=== PATIENT | female | born 2000 | race Caucasian/White ===

== ENCOUNTER 2021-09-05 20:27 | Day surgery (SDC) | payer OTHER ==
[2021-09-05] MEDS ORDERED: hydrALAZINE 20 MG/ML VIAL SLOW IVP PRN (21:56)
[2021-09-05 22:15] LABS: Bilirubin Neg (Negative); Blood, Urine 25 (Negative); Clarity Cloudy (Clear); Glucose, Urine (Dipstick) Normal (Negative); Ketone, Urine 50 mg/dL (Negative); Leukocyte 500 (Negative); Nitrite Negative (Negative); Protein, Urine (Dipstick) 30 mg/dl (Neg-Trace); Specific Gravity, Urine 1.015 (1.002-1.036)
[2021-09-05 22:27] LABS: Bacteria/HPF 3+ HPF (None Seen); WBC/HPF Greater Than 50 HPF (0-3)
[2021-09-05] MEDS ORDERED: Lactated Ringer's 1,000 ML IV SCH (23:00)
[2021-09-05 23:52] LABS: Bilirubin Neg (Negative); Blood, Urine 25 (Negative); Clarity Cloudy (Clear); Glucose, Urine (Dipstick) Normal (Negative); Ketone, Urine 50 mg/dL (Negative); Leukocyte 500 (Negative); Nitrite Negative (Negative); Protein, Urine (Dipstick) 30 mg/dl (Neg-Trace); Urobilinogen Normal mg/dL (Less than 2)
[2021-09-06 00:04] VITALS: BMI 28.1
[2021-09-06] MEDS ORDERED: Cephalexin 500 MG CAP PO SCH (00:15)
[2021-09-06 00:18] LABS: WBC/HPF Greater Than 50 HPF (0-3)
[2021-09-06 00:19] LABS: Bacteria/HPF 3+ HPF (None Seen); Renal Epithelial 0-3 HPF (None Seen); Squamous Epithelial 0-3 HPF (0-3)
== END 2021-09-06 01:46 | disposition home or self-care (01) ==
LOC: CSHLD/OP 20:27
PROVIDERS: ATTEND Obstetrics & Gynecology
DX: O23.43 Unspecified infection of urinary tract in pregnancy, third trimester (principal); N39.0 Urinary tract infection, site not specified; Z3A.34 34 weeks gestation of pregnancy; Z88.5 Allergy status to narcotic agent
CPT/HCPCS: 81001; 87086; 87480; 87510; 87660; 96360; 96361; 99284

== ENCOUNTER 2021-09-17 13:07 | Emergency (ER) | payer OTHER ==
[2021-09-17 14:17] LABS: #Basophils 0.1 10x3/uL (0.0-0.2); #Eosinphils 0.1 10x3/uL (0.0-0.5); #Monocytes 0.4 10x3/uL (0.0-1.1); #Neutrophils 5.3 10x3/uL (1.5-8.4); %Basophils 0.9 % (0.0-2.0); %Eosinophils 1.9 % (0.0-6.0); %Lymphocytes 19.9 % (18.0-47.0); %Monocytes 5.7 % (0.0-10.0); %Neutrophils 70.3 % (40.0-75.0); Hemoglobin 8.7 g/dL (12.0-15.5); Mean Corpuscular HGB CONC 30.7 g/dL (32.0-36.0); Mean Corpuscular Hemoglobin 24.6 pg (27.0-33.0); Mean Corpuscular Volume 79.9 fl (81.6-98.3); Mean Platelet Volume 9.4 fl (7.4-10.4); Platelet Count 314 10x3/uL (150-450); Red Blood Cell (RBC) Count 3.54 10x6/uL (3.90-5.03); White Blood Cell (WBC) Count 7.5 10x3/uL (3.5-10.5)
[2021-09-17 14:26] LABS: INR-International Normal Ratio 0.9; PTT 22.3 sec (22.0-33.0); Prothrombin Time 9.9 sec (9.5-12.1)
[2021-09-17 14:32] LABS: Bilirubin Neg (Negative); Blood, Urine Negative (Negative); Clarity Clear (Clear); Glucose, Urine (Dipstick) Normal (Negative); Ketone, Urine 5 mg/dL (Negative); Leukocyte 500 (Negative); Nitrite Negative (Negative); Protein, Urine (Dipstick) Negative (Neg-Trace); Specific Gravity, Urine 1.005 (1.002-1.036)
[2021-09-17 14:35] LABS: ALT (SGPT) 53 U/L (8-55); AST (SGOT) 45 U/L (5-34); Alkaline Phosphatase 237 U/L (40-110); Anion Gap 12 mmol/L (10-20); BUN (Urea Nitrogen) 4 mg/dL (7.0-18.7); Bilirubin, Total 1.3 mg/dL (0.2-1.2); Calc. Creatinine Clearance 0 mL/min (70-130); Calcium 8.6 mg/dL (7.8-10.44); Carbon Dioxide 21 mmol/L (22-29); Chloride 104 mmol/L (98-107); Globulin 3.7 g/dL (2.4-3.5); Glucose 76 mg/dL (70-105); Lipase 18 U/L (8-78); Potassium 3.7 mmol/L (3.5-5.1); Protein, Total 6.7 g/dL (6.0-8.3); Sodium 133 mmol/L (136-145)
[2021-09-17 14:42] LABS: Bacteria/HPF Rare-Few HPF (None Seen); RBC/HPF 0-3 HPF (0-3)
== END 2021-09-17 15:23 | disposition home or self-care (01) ==
LOC: CSHERS 13:07
DX: L30.9 Dermatitis, unspecified (principal)
CPT/HCPCS: 36415; 76819; 80053; 81003; 81015; 82239; 83690; 85025; 85610; 85730

== ENCOUNTER 2021-09-24 19:15 | Inpatient (IN) | payer OTHER ==
[2021-09-24] MEDS ORDERED: hydrALAZINE 20 MG/ML VIAL SLOW IVP PRN (21:55)
[2021-09-24] MEDS ORDERED: Diphenoxylate HCl/Atropine Tablet PO PRN ×2 (21:55)
[2021-09-24] MEDS ORDERED: HYDROcodone/Acetaminophen 5/325 mg Tablet PO PRN ×2 (21:55)
[2021-09-24] MEDS ORDERED: Lidocaine 1% (PF) 30 ML VIAL SC PRN (21:55)
[2021-09-24] MEDS ORDERED: Promethazine HCl 25 MG/ML VIAL IM PRN (21:55)
[2021-09-24] MEDS ORDERED: Ondansetron PF 4 MG/2 ML Vial IVP PRN (21:55)
[2021-09-24] MEDS ORDERED: Carboprost 250 MCG/ML AMP IM PRN (21:55)
[2021-09-24] MEDS ORDERED: Methylergonovine 0.2 MG/ML VIAL IM PRN (21:55)
[2021-09-24] MEDS ORDERED: Acetaminophen 500 MG TAB PO PRN (21:55)
[2021-09-24] MEDS ORDERED: Ibuprofen 800 MG TAB PO PRN (21:55)
[2021-09-24] MEDS ORDERED: Misoprostol 200 MCG TAB PR PRN (21:55)
[2021-09-24] MEDS ORDERED: Fentanyl 100 MCG/2 ML VIAL SLOW IVP PRN (21:55)
[2021-09-24 22:02] VITALS: BMI 27.6
[2021-09-24] MEDS: Lactated Ringer's 1,000 ML IV SCH (22:54)
[2021-09-24] MEDS ORDERED: NS w/ Oxytocin 30 units 500 ML IV SCH ×2 (23:00)
[2021-09-24 23:08] LABS: Hemoglobin 8.3 g/dL (12.0-15.5); Mean Corpuscular HGB CONC 31.3 g/dL (32.0-36.0); Mean Corpuscular Hemoglobin 24.4 pg (27.0-33.0); Mean Corpuscular Volume 77.9 fl (81.6-98.3); Mean Platelet Volume 10.2 fl (7.4-10.4); Platelet Count 328 10x3/uL (150-450); RBC Distribution Width 14.6 % (11.5-14.5); White Blood Cell (WBC) Count 8.9 10x3/uL (3.5-10.5)
[2021-09-24 23:19] LABS: ALT (SGPT) 71 U/L (8-55); AST (SGOT) 42 U/L (5-34); Alkaline Phosphatase 229 U/L (40-110); Anion Gap 14 mmol/L (10-20); BUN (Urea Nitrogen) 7 mg/dL (7.0-18.7); Bilirubin, Total 1.1 mg/dL (0.2-1.2); Calc. Creatinine Clearance 131 mL/min (70-130); Calcium 9.3 mg/dL (7.8-10.44); Carbon Dioxide 21 mmol/L (22-29); Chloride 103 mmol/L (98-107); Globulin 3.7 g/dL (2.4-3.5); Glucose 79 mg/dL (70-105); Potassium 3.6 mmol/L (3.5-5.1); Protein, Total 6.7 g/dL (6.0-8.3); Sodium 134 mmol/L (136-145)
[2021-09-24 23:37] LABS: Hep B Surf Ag Non-Reactive S/CO (NonReactive)
[2021-09-24 23:37] LABS: Syphilis Antibody Nonreactive (Nonreactive); Syphilis Antibody Index 0.07 S/CO (<1.00 Non-Reactive)
[2021-09-24 23:50] LABS: HBSAg Index 0.17 S/CO (0-0.99)
[2021-09-25 01:10] LABS: SARS-CoV-2 NAA Rapid Test DETECTED (NotDetected)
[2021-09-25] MEDS ORDERED: Fentanyl 2 mcg/Bup 0.1% Cadd 100 ML ONE (01:16)
[2021-09-25] MEDS: Lactated Ringer's 1,000 ML IV SCH (02:23)
[2021-09-25] MEDS ORDERED: Ondansetron PF 4 MG/2 ML Vial IVP PRN (02:45)
[2021-09-25] MEDS ORDERED: ePHEDrine Sulfate 50 MG/10 ML VIAL SLOW IVP PRN (02:45)
[2021-09-25] MEDS ORDERED: diphenhydrAMINE 50 MG/ML VIAL IVP PRN (02:45)
[2021-09-25] MEDS ORDERED: Lactated Ringer's 500 ML IV PRN (02:45)
[2021-09-25] MEDS ORDERED: Fentanyl 2 mcg/Bupivacaine 0.1% Cassette 100 ML EPIDURAL SCH (02:45)
[2021-09-25] MEDS ORDERED: Hydrocerin (Eucerin) Cream 120 gm Jar TOP PRN (02:45)
[2021-09-25] MEDS ORDERED: Naloxone HCl 0.4 mg/ml Vial IVP PRN ×2 (02:45)
[2021-09-25] MEDS ORDERED: Communication Order-Pharmacy FS SCH (02:45)
[2021-09-25] MEDS ORDERED: Promethazine HCl 25 MG/ML VIAL IM PRN (02:45)
[2021-09-25] MEDS ORDERED: Acetaminophen 325 MG TAB PO PRN (02:45)
[2021-09-25] MEDS ORDERED: Lanolin Ointment 7 GM TUBE TOP PRN (07:51)
[2021-09-25] MEDS ORDERED: hydrALAZINE 20 MG/ML VIAL SLOW IVP PRN (07:51)
[2021-09-25] MEDS ORDERED: Bisacodyl 10 MG SUPP PR PRN (07:51)
[2021-09-25] MEDS ORDERED: Preparation H Ointment 28 GM TUBE PR PRN (07:51)
[2021-09-25] MEDS ORDERED: Milk Of Magnesia 30 ML UDCUP PO PRN (07:51)
[2021-09-25] MEDS ORDERED: Benzocaine-Menthol 82.5 ML CAN TOP PRN (07:51)
[2021-09-25] MEDS ORDERED: Ferrous Sulfate 325 MG TAB PO SCH (08:30)
[2021-09-25 08:58] LABS: Hemoglobin 8.3 g/dL (12.0-15.5); Mean Corpuscular HGB CONC 30.7 g/dL (32.0-36.0); Mean Corpuscular Hemoglobin 24.3 pg (27.0-33.0); Mean Corpuscular Volume 78.9 fl (81.6-98.3); Mean Platelet Volume 10.5 fl (7.4-10.4); Platelet Count 291 10x3/uL (150-450); RBC Distribution Width 14.6 % (11.5-14.5); Red Blood Cell (RBC) Count 3.42 10x6/uL (3.90-5.03)
[2021-09-25] MEDS: Ibuprofen 800 MG TAB PO SCH ×2 (10:48→18:45)
[2021-09-25] MEDS ORDERED: traMADol HCl 50 MG TAB PO PRN (11:44)
[2021-09-25] MEDS: Prenatal Vitamin 1 TAB PO SCH (18:38)
[2021-09-25] MEDS: Docusate 100 MG CAP PO SCH ×2 (18:38→22:00)
[2021-09-25] MEDS: Ferrous Sulfate 325 MG TAB PO SCH ×2 (18:39→18:45)
[2021-09-26] MEDS: Ibuprofen 800 MG TAB PO SCH ×2 (01:08→09:10)
[2021-09-26 04:46] LABS: ALT (SGPT) 47 U/L (8-55); AST (SGOT) 38 U/L (5-34); Albumin 2.4 g/dL (3.5-5.0); Alkaline Phosphatase 207 U/L (40-110); Anion Gap 10 mmol/L (10-20); BUN (Urea Nitrogen) 7 mg/dL (7.0-18.7); Bilirubin, Total 0.8 mg/dL (0.2-1.2); Calc. Creatinine Clearance 125 mL/min (70-130); Calcium 8.5 mg/dL (7.8-10.44); Carbon Dioxide 21 mmol/L (22-29); Chloride 107 mmol/L (98-107); Globulin 3.2 g/dL (2.4-3.5); Glucose 70 mg/dL (70-105); Potassium 4.1 mmol/L (3.5-5.1); Protein, Total 5.6 g/dL (6.0-8.3); Sodium 134 mmol/L (136-145)
[2021-09-26] MEDS ORDERED: Boostrix 0.5 ML (Tdap) VIAL IM ONE (07:51)
[2021-09-26] MEDS: Ferrous Sulfate 325 MG TAB PO SCH (09:09)
[2021-09-26] MEDS: Docusate 100 MG CAP PO SCH (09:09)
[2021-09-26] MEDS: Prenatal Vitamin 1 TAB PO SCH (09:10)
[2021-09-26 09:47] VITALS: BP 116/61; TEMP 98.3
== END 2021-09-26 12:55 | disposition home or self-care (01) | DRG 805 ==
LOC: CSHLD 21:28 → CSHANTE 09-25 11:09
PROVIDERS: ADMIT Obstetrics & Gynecology; ATTEND Obstetrics & Gynecology
PROC: 8E0ZXY6 Isolation (ICD-10-PCS; 2021-09-24)
PROC: 10E0XZZ Delivery of Products of Conception, External Approach (ICD-10-PCS; principal; 2021-09-25)
PROC: 0HQ9XZZ Repair Perineum Skin, External Approach (ICD-10-PCS; 2021-09-25)
DX: O26.62 Liver and biliary tract disorders in childbirth (principal); K83.1 Obstruction of bile duct; Z37.0 Single live birth; U07.1 COVID-19; O98.52 Other viral diseases complicating childbirth; Z3A.37 37 weeks gestation of pregnancy; O70.0 First degree perineal laceration during delivery
CPT/HCPCS: 36415; 51702; 80053; 85027; 86780; 86850; 86900; 86901; 87340; J2590; J7120; U0002